=== PATIENT | female | born 1970 | race Caucasian/White ===

== ENCOUNTER 2016-11-05 11:07 | Emergency (ER) | payer SELFPAY ==
[~2016-11-05] VITALS: Ht 157.5 cm; Wt 51.0 kg
[2016-11-05 11:20] VITALS: BP_SYST 171; BP_SYST 178; BP_DIAS 102; BP_DIAS 118; PULSE 85; RESP 16; TEMP 98.9; O2SAT 100
[2016-11-05] MEDS ORDERED: DICL50TA3 PO (11:40)
[2016-11-05] MEDS ORDERED: ROBA750T PO (11:40)
[2016-11-05] MEDS ORDERED: ORPHENADRINE INJ 60 MG/2 ML AMP IM ONE (11:45)
[2016-11-05] MEDS ORDERED: methylPREDNISolone SOD SUCC 125 MG/2 ML VIAL IM ONE (11:45)
--- NOTE | 2016-11-05 11:47 | PD ---
HPI Chief Complaint: Back/ Neck Pain or Injury Time Seen by Provider: 11:40 Travel History International Travel<30 days: No Contact w/Intl Traveler<30days: No Traveled to known affect area: No History of Present Illness HPI Patient is a 46-year-old female with history of sciatica presenting with chief complaint of "sciatica for 10 days ". She states that after riding to [employer] for any drug she began having pain and pinching in her buttock. It feels tight and radiates down the proximal right thigh. She has some burning and tingling type sensation on the posterior aspect of the right leg stopping at the knee as well. She states that bending up as a position of comfort. Ibuprofen has helped only minimally. She denies any weakness or sensation loss. She denies bowel or bladder dysfunction, fever, abdominal pain, saddle anesthesia and history of IVDA. She denies trauma or injury to the area. [facility] Past Medical History Anemia: Yes ?: Not Past Surgical History Section: Yes Hysterectomy: Yes (PARTIAL) Social History Alcohol Use: Yes (OCC) Tobacco Use: No Allergies-Medications (Allergen,Severity, Reaction): Coded Allergies: No Known Allergies (Unverified , 11/05/16) Reported Meds & Prescriptions Reported Meds & Active Scripts Active No Active Prescriptions or Reported Medications Review of Systems Except as stated in HPI: all other systems reviewed are Neg Physical Exam Narrative GENERAL: Well-developed and well-nourished adult female in no acute distress. SKIN: Warm and dry. Good turgor without tenting. HEAD: Normocephalic and atraumatic. EYES: PERRL bilaterally, 5mm. EOMI bilaterally. No injection or icterus present. No proptosis. Lids without edema or erythema. NECK: Supple, no midline tenderness, crepitus or step-offs. Trachea midline, no JVD. No cervical or facial lymphadenopathy. CARDIOVASCULAR: Regular rate and rhythm without murmurs, rubs, clicks or gallops. Dorsalis pedis and posterior tibial pulses 2+ bilaterally. No pedal edema. RESPIRATORY: Clear to auscultation bilaterally with symmetrical rise and fall, no distress or use of accessory muscles. GASTROINTESTINAL: Non-tender, non-distended. Normal bowel sounds all 4 quadrants. No masses or organomegaly present. MUSCULOSKELETAL: Antalgic gait. Patient to palpation of the right-sided parasacral spinous musculature and upper buttock. No edema, discoloration, or crepitus or step-offs. No sacral or lumbar midline tenderness or crepitus. Normal range of motion of bilateral hips and knees. Negative right straight leg raise. Performing the Fabere test on the right lower extremity does ease the patient's pain, no contralateral SI pain. Patient freely moving all four extremities spontaneously. Extremities without clubbing, cyanosis, or edema. No obvious deformities. NEUROLOGIC: CN II-XII grossly intact. Awake and alert. Sensation intact L1-S2 bilaterally. Strength 5/5 in hip flexion, hip extension, knee flexion, knee extension, plantar flexion, dorsiflexion, and great toe flexion and extension bilaterally. Bilateral patellar and Achilles DTRs 2+. Downgoing Babinskis bilaterally. Normal speech. PSYCHIATRIC: Appropriate mood and affect; insight and judgment normal. Data Data Last Documented VS Vital Signs Date Time Temp Pulse Resp B/P Pulse Ox O2 Delivery O2 Flow Rate FiO2 11/05/16 11:20 98.9 85 16 171/102 100 Orders Orphenadrine Inj (Norflex Inj) (11/05/16 11:45) Methylprednisolone So Succ Inj (Solumedr (11/05/16 11:45) MDM Medical Decision Making Medical Screen Exam Complete: Yes Emergency Medical Condition: Yes Differential Diagnosis Sciatica versus piriformis syndrome versus lumbar radiculopathy Narrative Course Patient is a 46-year-old female with history and physical suggestive of sciatica. She has noted "red flag symptoms and is neurovascularly intact. Patient was given Solu-Medrol 125 mg IM and Norflex here. Prescription for Robaxin and diclofenac was given. Patient's blood pressure is elevated her she has no cardiac pulmonary symptoms and no findings suggestive of any acute cardiopulmonary disease or hypertension urgency/emergency. Recommended to patient that she follow-up with a PCP to discuss her blood pressure.See discharge paperwork for further instructions. The plan was discussed with the patient who acknowledged their understanding and agreement. Reinforced the follow-up with primary care is critically important. Patient instructed on emergent conditions that should prompt return to ED. Diagnosis Primary Impression: Sciatica Qualified Code: M54.31 - Sciatica of right side Additional Impression: Elevated blood pressure reading Patient Instructions: General Instructions, Sciatica (ED) Additional Instructions: Rest for 24 hours, then gradually resume normal activity Avoid maneuvers or positions that aggravate the pain Avoid twisting/bending or lifting heavy items Take medications as prescribed Your medications may cause drowsiness. Do not take with alcohol or sedatives. Do not operate a motor vehicle or heavy machinery while on medication. Warm, moist heat applied to painful areas hourly as needed Try to massage and stretch affected muscles after applying heat to speed recovery Follow-up with PCP in 1-2 days Return to ED for any acute worsening of symptoms Med/Other Pt SpecificInfo: Prescription(s) given Scripts Methocarbamol (Robaxin)750 Mg [id number] Mg PO QID PRN (MUSCLE SPASM) #40 TAB 2 tabs QID for 2 days, then 1 tab QID thereafter Prov:Ivan Dao MD 11/05/[address] 50 Mg Tabdr50 Mg PO BID #10 TAB Prov:Ivan Dao MD 11/05/16 Disposition: 01 DISCHARGE HOME Condition: Stable Evan Zhao III Nov 05, 2016 11:46
== END 2016-11-05 12:11 | disposition home or self-care (01) ==
LOC: PHEFT 11:07
DX: M54.31 Sciatica, right side (principal); R03.0 Elevated blood-pressure reading, without diagnosis of hypertension; Z86.2 Personal history of diseases of the blood and blood-forming organs and certain disorders involving the immune mechanism
CPT/HCPCS: 96372; 99283; J2360; J2930